=== PATIENT | male | born 1950 | race Caucasian/White ===

== ENCOUNTER 2021-03-08 10:23 | Inpatient (IN) ==
[2021-03-08 11:11] LABS: Basophils % 0.2 %; Eosinophils # 0.1 K/mcL (0.0-0.6); Eosinophils % 0.4 %; Hematocrit 44.8 % (37.5-50.1); Hemoglobin 15.1 g/dL (12.9-16.9); Immature Granulocytes % 0.3 % (0-4); Lymphocytes # 1.2 K/mcL (0.6-4.6); Lymphocytes % 9.6 %; Mean Corpuscular HGB Conc 33.7 g/dL (31.6-35.5); Mean Corpuscular Hemoglobin 29.5 pg (28.0-33.3); Mean Corpuscular Volume 87.5 fL (83.0-100.0); Mean Platelet Volume 11.1 fL (9.4-12.4); Monocytes # 0.7 K/mcL (0.0-1.3); Monocytes % 5.5 %; Neutrophils # 10.7 K/mcL (1.6-8.9); Platelet Count 168 K/mcL (140-400); Red Blood Count 5.12 M/mcL (4.19-5.50); Red Cell Distribution Width 14.2 % (11.5-14.5); White Blood Count 12.8 K/mcL (4.3-11.1)
[2021-03-08 11:28] LABS: INR 1.2; Prothrombin Time 13.6 Seconds (9.4-12.1)
[2021-03-08 11:30] LABS: Activated Partial Thrombo Time 33.9 Seconds (26.0-36.0)
[2021-03-08 11:40] LABS: BUN/Creatinine Ratio 22 (6-26); Blood Urea Nitrogen 20 mg/dL (8-23); Calcium 9.6 mg/dL (8.6-10.3); Carbon Dioxide 26 mEq/L (23-29); Chloride 98 mEq/L (98-107); Glucose 121 mg/dL (70-105); Osmolality,Calculated 290 (280-300); Potassium 3.4 mEq/L (3.5-5.1); Sodium 138 mEq/L (136-145); Troponin I < 0.03 ng/mL (< 0.04); eGFR For African Americans > 60 (> 60); eGFR For Non-African Americans > 60 (> 60)
[2021-03-08] MEDS ORDERED: Tdap (Boostrix) Vaccine 0.5 ML SYRINGE IM ONE (14:36)
[2021-03-08] MEDS ORDERED: MOM Conc 10 ML UD.LIQ PO PRN (15:12)
[2021-03-08] MEDS ORDERED: Naloxone 0.4 MG/ML INJ IVP PRN (15:12)
[2021-03-08] MEDS ORDERED: Perflutren Lipid Microsphere 1.3 ML in 0.9 % Sodium Chloride 8.7 ML IVP PRN (15:15)
[2021-03-08] MEDS: 0.9 % Sodium Chloride 1,000 ML IVC SCH (18:25)
[2021-03-08] MEDS: *HR* OxyCODONE Immed Rel 5 MG TABLET PO PRN (19:04)
[2021-03-08] MEDS: Amoxicillin 500 MG CAPSULE PO SCH (20:03)
[2021-03-09] MEDS: *HR* Enoxaparin 40 MG/0.4 ML SYRINGE SQ SCH (05:18)
[2021-03-09 07:47] LABS: Hematocrit 39.2 % (37.5-50.1); Hemoglobin 13.7 g/dL (12.9-16.9); Mean Corpuscular HGB Conc 34.9 g/dL (31.6-35.5); Mean Corpuscular Hemoglobin 30.2 pg (28.0-33.3); Mean Corpuscular Volume 86.5 fL (83.0-100.0); Platelet Count 147 K/mcL (140-400); Red Blood Count 4.53 M/mcL (4.19-5.50); Red Cell Distribution Width 14.4 % (11.5-14.5); White Blood Count 9.2 K/mcL (4.3-11.1)
[2021-03-09 08:04] LABS: Alanine Aminotransferase 16 Units/L (7-52); Albumin 3.8 g/dL (3.5-5.7); Albumin/Globulin Ratio 1.6 (1.1-2.2); Alkaline Phosphatase 15 Units/L (34-104); Aspartate Amino Transferase 19 Units/L (13-39); BUN/Creatinine Ratio 28 (6-26); Bilirubin,Total 1.4 mg/dL (0.3-1.0); Blood Urea Nitrogen 22 mg/dL (8-23); Calcium 9.1 mg/dL (8.6-10.3); Carbon Dioxide 24 mEq/L (23-29); Chloride 105 mEq/L (98-107); Globulin 2.4 g/dL (2.4-3.5); Glucose 92 mg/dL (70-105); Osmolality,Calculated 287 (280-300); Potassium 2.9 mEq/L (3.5-5.1); Sodium 137 mEq/L (136-145); Total Protein 6.2 g/dL (6.4-8.9); eGFR For African Americans > 60 (> 60); eGFR For Non-African Americans > 60 (> 60)
[2021-03-09] MEDS: Amoxicillin 500 MG CAPSULE PO SCH ×2 (08:53→20:03)
[2021-03-09] MEDS: *HR* OxyCODONE Immed Rel 5 MG TABLET PO PRN ×2 (08:58→20:06)
[2021-03-09 10:07] LABS: Estimated Average Glucose 105 mg/dl; Hemoglobin A1C 5.3 %
[2021-03-09] MEDS: 0.9 % Sodium Chloride 1,000 ML IVC SCH (14:11)
[2021-03-10] MEDS: *HR* Enoxaparin 40 MG/0.4 ML SYRINGE SQ SCH (04:59)
[2021-03-10] MEDS: Amoxicillin 500 MG CAPSULE PO SCH ×2 (08:06→19:38)
[2021-03-10] MEDS: *HR* OxyCODONE Immed Rel 5 MG TABLET PO PRN ×2 (12:18→23:50)
[2021-03-11 04:31] LABS: BUN/Creatinine Ratio 27 (6-26); Blood Urea Nitrogen 18 mg/dL (8-23); Calcium 8.9 mg/dL (8.6-10.3); Carbon Dioxide 14 mEq/L (23-29); Chloride 107 mEq/L (98-107); Glucose 64 mg/dL (70-105); Osmolality,Calculated 284 (280-300); Potassium 4.1 mEq/L (3.5-5.1); Sodium 137 mEq/L (136-145); eGFR For African Americans > 60 (> 60); eGFR For Non-African Americans > 60 (> 60)
[2021-03-11] MEDS: *HR* Enoxaparin 40 MG/0.4 ML SYRINGE SQ SCH (06:30)
[2021-03-11] MEDS: Amoxicillin 500 MG CAPSULE PO SCH ×2 (08:58→20:13)
[2021-03-11] MEDS ORDERED: E-Z-HD (BARIUM SULF) SUSPENSION PO ONE (16:23)
[2021-03-11] MEDS ORDERED: E-Z-PAQUE (BARIUM SULF) SUSP 1 BOTTLE PO ONE (16:23)
[2021-03-11] MEDS ORDERED: Isovue-370 500 ML BOTTLE IVP ONE (18:11)
[2021-03-11] MEDS: rOPINIRole 1 MG TABLET PO SCH (20:13)
[2021-03-12] MEDS: *HR* Enoxaparin 40 MG/0.4 ML SYRINGE SQ SCH (05:53)
[2021-03-12] MEDS: Amoxicillin 500 MG CAPSULE PO SCH ×2 (08:12→20:15)
[2021-03-12] MEDS: Ondansetron ODT 4 MG TAB.RAPDIS SL PRN (08:12)
[2021-03-12] MEDS: rOPINIRole 1 MG TABLET PO SCH (20:15)
[2021-03-13] MEDS: *HR* Enoxaparin 40 MG/0.4 ML SYRINGE SQ SCH (04:54)
[2021-03-13] MEDS: Amoxicillin 500 MG CAPSULE PO SCH (08:13)
[2021-03-13] MEDS ORDERED: *HR* Dextrose 50 % in Water (Syg) 50 ML SYRINGE IVP PRN (11:26)
[2021-03-13] MEDS ORDERED: D5% in Water 1,000 ML IVC PRN (11:26)
[2021-03-13] MEDS ORDERED: Dextrose Gel 15 GM/37.5 ML TUBE PO PRN ×2 (11:26)
[2021-03-13] MEDS: 0.9 % Sodium Chloride 1,000 ML IVC SCH ×2 (12:09→19:39)
[2021-03-13] MEDS ORDERED: Lidocaine -MPF 2% 5 ML VIAL ONE (14:08)
[2021-03-13] MEDS ORDERED: *HR* Propofol 200 MG/20 ML VIAL IVP ONE (14:08)
[2021-03-13] MEDS: rOPINIRole 1 MG TABLET PO SCH (19:37)
[2021-03-13] MEDS: *HR* OxyCODONE Immed Rel 5 MG TABLET PO PRN (19:37)
[2021-03-14] MEDS: *HR* Enoxaparin 40 MG/0.4 ML SYRINGE SQ SCH (05:31)
[2021-03-14] MEDS: 0.9 % Sodium Chloride 1,000 ML IVC SCH ×2 (13:12→13:13)
[2021-03-14 16:23] LABS: Influenza A PCR Negative (Negative); Influenza B PCR Negative (Negative); Resp. Syncytial Virus PCR Negative (Negative)
[2021-03-14 16:30] LABS: SARS-CoV-2 by PCR (In House) Negative (Negative)
[2021-03-14] MEDS: *HR* OxyCODONE Immed Rel 5 MG TABLET PO PRN (16:44)
[2021-03-14 18:14] LABS: Hematocrit 42.5 % (37.5-50.1); Hemoglobin 14.6 g/dL (12.9-16.9); Mean Corpuscular HGB Conc 34.4 g/dL (31.6-35.5); Mean Corpuscular Hemoglobin 30.4 pg (28.0-33.3); Mean Corpuscular Volume 88.5 fL (83.0-100.0); Mean Platelet Volume 11.7 fL (9.4-12.4); Platelet Count 150 K/mcL (140-400); Red Cell Distribution Width 14.6 % (11.5-14.5); White Blood Count 5.8 K/mcL (4.3-11.1)
[2021-03-14 18:32] LABS: BUN/Creatinine Ratio 35 (6-26); Blood Urea Nitrogen 23 mg/dL (8-23); Calcium 9.5 mg/dL (8.6-10.3); Carbon Dioxide 28 mEq/L (23-29); Chloride 103 mEq/L (98-107); Glucose 93 mg/dL (70-105); Osmolality,Calculated 297 (280-300); Potassium 3.5 mEq/L (3.5-5.1); Sodium 142 mEq/L (136-145); eGFR For African Americans > 60 (> 60); eGFR For Non-African Americans > 60 (> 60)
[2021-03-14] MEDS: rOPINIRole 1 MG TABLET PO SCH (19:47)
[2021-03-15] MEDS: *HR* OxyCODONE Immed Rel 5 MG TABLET PO PRN (01:27)
[2021-03-15 01:58] LABS: Basophils % 0.6 %; Eosinophils # 0.1 K/mcL (0.0-0.6); Eosinophils % 2.1 %; Hemoglobin 14.3 g/dL (12.9-16.9); Immature Granulocytes % 0.1 % (0-4); Lymphocytes # 1.9 K/mcL (0.6-4.6); Lymphocytes % 27.8 %; Mean Corpuscular HGB Conc 33.3 g/dL (31.6-35.5); Mean Corpuscular Hemoglobin 29.3 pg (28.0-33.3); Mean Corpuscular Volume 88.1 fL (83.0-100.0); Monocytes # 0.6 K/mcL (0.0-1.3); Monocytes % 8.6 %; Neutrophils # 4.1 K/mcL (1.6-8.9); Platelet Count 150 K/mcL (140-400); Red Blood Count 4.88 M/mcL (4.19-5.50); Red Cell Distribution Width 14.6 % (11.5-14.5); Segmented Neutrophils % 60.8 %; White Blood Count 6.8 K/mcL (4.3-11.1)
[2021-03-15] MEDS: Ondansetron ODT 4 MG TAB.RAPDIS SL PRN (02:14)
[2021-03-15 02:16] LABS: Alanine Aminotransferase 31 Units/L (7-52); Albumin 3.8 g/dL (3.5-5.7); Albumin/Globulin Ratio 1.4 (1.1-2.2); Alkaline Phosphatase 22 Units/L (34-104); Aspartate Amino Transferase 35 Units/L (13-39); BUN/Creatinine Ratio 32 (6-26); Bilirubin,Total 1.2 mg/dL (0.3-1.0); Blood Urea Nitrogen 22 mg/dL (8-23); Calcium 9.3 mg/dL (8.6-10.3); Carbon Dioxide 28 mEq/L (23-29); Chloride 105 mEq/L (98-107); Globulin 2.8 g/dL (2.4-3.5); Glucose 101 mg/dL (70-105); Osmolality,Calculated 289 (280-300); Potassium 3.2 mEq/L (3.5-5.1); Sodium 138 mEq/L (136-145); Total Protein 6.6 g/dL (6.4-8.9); eGFR For African Americans > 60 (> 60); eGFR For Non-African Americans > 60 (> 60)
[2021-03-15] MEDS: 0.9 % Sodium Chloride 1,000 ML IVC SCH ×2 (04:50→09:40)
[2021-03-15] MEDS: *HR* Enoxaparin 40 MG/0.4 ML SYRINGE SQ SCH (05:00)
[2021-03-15] MEDS ORDERED: Prochlorperazine 10 MG/2 ML VIAL IVP PRN (05:16)
[2021-03-15 07:20] VITALS: TEMP 97.5
[2021-03-15 10:50] VITALS: BP 134/78; PULSE 80; O2SAT 93
== END 2021-03-15 16:09 | DRG 312 ==
LOC: 3BNU 10:23 → EMEROOARM 10:23 → SUATTDRO 15:13 → 3BNU 17:10
PROVIDERS: ADMIT Internal Medicine; ATTEND Registered Nurse
PROC: ENDOEDS (2021-03-13 15:25)

== ENCOUNTER 2021-06-19 12:21 | Inpatient (IN) ==
[2021-06-19] MEDS ORDERED: 0.9 % Sodium Chloride 1,000 ML IVC ONE (14:21)
[2021-06-19 15:13] LABS: Basophils # 0.1 K/mcL (0.0-0.2); Basophils % 0.6 %; Eosinophils # 0.2 K/mcL (0.0-0.6); Eosinophils % 1.7 %; Hematocrit 37.1 % (37.5-50.1); Hemoglobin 11.6 g/dL (12.9-16.9); Immature Granulocytes % 0.6 % (0-4); Lymphocytes # 1.6 K/mcL (0.6-4.6); Lymphocytes % 15.5 %; Mean Corpuscular HGB Conc 31.3 g/dL (31.6-35.5); Mean Corpuscular Hemoglobin 28.9 pg (28.0-33.3); Mean Corpuscular Volume 92.5 fL (83.0-100.0); Mean Platelet Volume 9.5 fL (9.4-12.4); Monocytes # 0.6 K/mcL (0.0-1.3); Monocytes % 5.7 %; Neutrophils # 7.7 K/mcL (1.6-8.9); Platelet Count 316 K/mcL (140-400); Red Blood Count 4.01 M/mcL (4.19-5.50); Red Cell Distribution Width 15.3 % (11.5-14.5); Segmented Neutrophils % 75.9 %; White Blood Count 10.1 K/mcL (4.3-11.1)
[2021-06-19 15:16] LABS: Alanine Aminotransferase 16 Units/L (7-52); Albumin 3.7 g/dL (3.5-5.7); Albumin/Globulin Ratio 1.1 (1.1-2.2); Alkaline Phosphatase 30 Units/L (34-104); Aspartate Amino Transferase 14 Units/L (13-39); BUN/Creatinine Ratio 14 (6-26); Bilirubin,Direct 0.1 mg/dL (0.0-0.2); Bilirubin,Indirect 0.3 mg/dL (0.0-1.0); Bilirubin,Total 0.4 mg/dL (0.3-1.0); Blood Urea Nitrogen 44 mg/dL (8-23); Calcium 9.6 mg/dL (8.6-10.3); Carbon Dioxide 21 mEq/L (23-29); Chloride 105 mEq/L (98-107); Globulin 3.3 g/dL (2.4-3.5); Glucose 93 mg/dL (70-105); Lipase 27 Units/L (11-82); Osmolality,Calculated 289 (280-300); Potassium 4.4 mEq/L (3.5-5.1); Sodium 134 mEq/L (136-145); eGFR For African Americans 23 (> 60); eGFR For Non-African Americans 19 (> 60)
[2021-06-19 15:25] LABS: Troponin I < 0.03 ng/mL (< 0.04)
[2021-06-19] MEDS ORDERED: Pantoprazole 40 MG VIAL IVP ONE (17:19)
[2021-06-19] MEDS ORDERED: Naloxone 0.4 MG/ML INJ IVP PRN (17:39)
[2021-06-19 20:24] LABS: Creatine Kinase 15 Units/L (30-223); Magnesium 2.4 mg/dL (1.6-2.6); Phosphorous 4.6 mg/dL (2.7-4.5)
[2021-06-19] MEDS: *HR* Heparin 5,000 UNIT/ML VIAL SQ SCH (21:52)
[2021-06-19] MEDS: Acetaminophen 325 MG TABLET PO PRN (21:52)
[2021-06-20 03:06] LABS: Basophils # 0.1 K/mcL (0.0-0.2); Basophils % 0.6 %; Eosinophils # 0.3 K/mcL (0.0-0.6); Hematocrit 35.5 % (37.5-50.1); Hemoglobin 11.2 g/dL (12.9-16.9); Immature Granulocytes % 0.5 % (0-4); Lymphocytes # 2.7 K/mcL (0.6-4.6); Lymphocytes % 23.5 %; Mean Corpuscular HGB Conc 31.5 g/dL (31.6-35.5); Mean Corpuscular Hemoglobin 28.8 pg (28.0-33.3); Mean Corpuscular Volume 91.3 fL (83.0-100.0); Mean Platelet Volume 9.8 fL (9.4-12.4); Monocytes # 0.9 K/mcL (0.0-1.3); Monocytes % 7.9 %; Neutrophils # 7.3 K/mcL (1.6-8.9); Platelet Count 262 K/mcL (140-400); Red Blood Count 3.89 M/mcL (4.19-5.50); Red Cell Distribution Width 15.4 % (11.5-14.5); Segmented Neutrophils % 64.5 %; White Blood Count 11.4 K/mcL (4.3-11.1)
[2021-06-20 03:34] LABS: Calcium 9.1 mg/dL (8.6-10.3); Potassium 4.2 mEq/L (3.5-5.1)
[2021-06-20] MEDS: *HR* Heparin 5,000 UNIT/ML VIAL SQ SCH (05:59)
[2021-06-20] MEDS: Pantoprazole 40 MG VIAL IVP SCH (07:38)
[2021-06-20] MEDS: Acetaminophen 325 MG TABLET PO PRN (09:38)
[2021-06-20] MEDS: Ringers Solution, Lactated 1,000 ML IVC SCH (09:39)
[2021-06-20 12:51] LABS: % Iron Saturation 15 % (20-55); Iron 38 mcg/dL (65-175); Transferrin 176 mg/dL (203-362)
[2021-06-20 13:09] LABS: Ferritin 293 ng/mL (20-250)
[2021-06-20] MEDS ORDERED: Simethicone 40 MG/0.6 ML MLS IR ONE (13:45)
[2021-06-20] MEDS ORDERED: Lidocaine -MPF 2% 5 ML VIAL ONE (14:25)
[2021-06-20] MEDS ORDERED: *HR* Propofol 200 MG/20 ML VIAL IVP ONE (15:00)
[2021-06-20 18:53] LABS: Bacteria,Urine Few per hpf (None-Few); Bilirubin,Urine Negative (Negative); Blood,Urine Trace (Negative); Clarity,Urine Turbid (Clear); Color,Urine Light-Yellow (Yellow); Glucose,Urine (UA) Normal (Normal); Ketones,Urine Negative (Negative); Leukocyte Esterase,Urine Large (Negative); Mucus,Urine Few per lpf (None-Few); Nitrite,Urine Negative (Negative); PH,Urine 6.5 pH Units (5.0-8.0); Protein,Urine Trace mg/dL (Neg-Trace); RBC,Urine 0-3 per hpf (0-3); Specific Gravity,Urine 1.008 (1.010-1.025); Squamous Epithelial Cell,Urine Few per hpf (None-Few); Urobilinogen,Urine Normal (Normal); WBC,Urine TNTC per hpf (0-3)
[2021-06-20 19:11] LABS: Sodium, Urine 58.6 mEq/L
[2021-06-20] MEDS: rOPINIRole 1 MG TABLET PO SCH (21:12)
[2021-06-21 03:15] LABS: Basophils # 0.1 K/mcL (0.0-0.2); Basophils % 0.8 %; Eosinophils # 0.3 K/mcL (0.0-0.6); Eosinophils % 3.4 %; Immature Granulocytes % 0.4 % (0-4); Lymphocytes # 1.9 K/mcL (0.6-4.6); Lymphocytes % 23.5 %; Mean Corpuscular HGB Conc 31.3 g/dL (31.6-35.5); Mean Corpuscular Hemoglobin 29.9 pg (28.0-33.3); Mean Corpuscular Volume 95.5 fL (83.0-100.0); Mean Platelet Volume 10.9 fL (9.4-12.4); Monocytes # 0.6 K/mcL (0.0-1.3); Monocytes % 7.5 %; Neutrophils # 5.1 K/mcL (1.6-8.9); Red Blood Count 3.35 M/mcL (4.19-5.50); Red Cell Distribution Width 15.4 % (11.5-14.5); Segmented Neutrophils % 64.4 %; White Blood Count 7.9 K/mcL (4.3-11.1)
[2021-06-21 03:32] LABS: Calcium 8.9 mg/dL (8.6-10.3); Magnesium 2.2 mg/dL (1.6-2.6); Potassium 4.9 mEq/L (3.5-5.1)
[2021-06-21 03:49] LABS: Platelet Count 90 K/mcL (140-400)
[2021-06-21] MEDS: Ringers Solution, Lactated 1,000 ML IVC SCH ×2 (06:39→16:16)
[2021-06-21] MEDS: Pantoprazole 40 MG VIAL IVP SCH (08:03)
[2021-06-21] MEDS: Acetaminophen 325 MG TABLET PO PRN (16:22)
[2021-06-21] MEDS: rOPINIRole 1 MG TABLET PO SCH (20:58)
[2021-06-22] MEDS: Ringers Solution, Lactated 1,000 ML IVC SCH ×2 (01:00→14:30)
[2021-06-22 07:22] LABS: Basophils # 0.1 K/mcL (0.0-0.2); Basophils % 0.8 %; Eosinophils # 0.3 K/mcL (0.0-0.6); Eosinophils % 2.9 %; Immature Granulocytes % 0.4 % (0-4); Lymphocytes # 2.7 K/mcL (0.6-4.6); Lymphocytes % 27.8 %; Mean Corpuscular HGB Conc 31.4 g/dL (31.6-35.5); Mean Corpuscular Hemoglobin 28.9 pg (28.0-33.3); Mean Platelet Volume 9.5 fL (9.4-12.4); Monocytes # 0.6 K/mcL (0.0-1.3); Monocytes % 6.6 %; Neutrophils # 5.9 K/mcL (1.6-8.9); Platelet Count 312 K/mcL (140-400); Red Blood Count 4.02 M/mcL (4.19-5.50); Red Cell Distribution Width 15.5 % (11.5-14.5); Segmented Neutrophils % 61.5 %; White Blood Count 9.5 K/mcL (4.3-11.1)
[2021-06-22 07:25] LABS: Hemoglobin 11.6 g/dL (12.9-16.9)
[2021-06-22] MEDS ORDERED: Ondansetron 4 MG/2 ML VIAL ONE (07:32)
[2021-06-22] MEDS ORDERED: Lidocaine -MPF 2% 2 ML VIAL ONE (07:32)
[2021-06-22 07:43] LABS: Calcium 9.8 mg/dL (8.6-10.3); Potassium 4.1 mEq/L (3.5-5.1)
[2021-06-22] MEDS ORDERED: *HR* FentaNYL (PF) 100 MCG/2 ML VIAL ONE (10:03)
[2021-06-22] MEDS ORDERED: Lidocaine -MPF 1% 5 ML AMPUL ONE (10:11)
[2021-06-22] MEDS ORDERED: *HR* OxyCODONE Oral Soln 5 MG/5 ML UD.LIQ GTUBE PRN (10:42)
[2021-06-22] MEDS: Pantoprazole 40 MG VIAL IVP SCH (10:55)
[2021-06-22 11:52] LABS: Phosphorous 4.8 mg/dL (2.7-4.5)
[2021-06-22] MEDS: Acetaminophen 325 MG TABLET PO PRN (16:21)
[2021-06-22] MEDS: *HR* OxyCODONE Oral Soln 5 MG/5 ML UD.LIQ PO PRN ×2 (17:49→23:32)
[2021-06-22] MEDS: rOPINIRole 1 MG TABLET PO SCH (22:10)
[2021-06-22] MEDS: Mirtazapine 15 MG TABLET PO SCH (22:10)
[2021-06-23 03:16] LABS: Basophils % 0.3 %; Eosinophils % 0.1 %; Hematocrit 33.4 % (37.5-50.1); Hemoglobin 10.6 g/dL (12.9-16.9); Immature Granulocytes % 0.5 % (0-4); Lymphocytes # 1.8 K/mcL (0.6-4.6); Lymphocytes % 14.9 %; Mean Corpuscular HGB Conc 31.7 g/dL (31.6-35.5); Mean Corpuscular Hemoglobin 29.1 pg (28.0-33.3); Mean Corpuscular Volume 91.8 fL (83.0-100.0); Mean Platelet Volume 9.8 fL (9.4-12.4); Monocytes # 0.7 K/mcL (0.0-1.3); Monocytes % 6.1 %; Neutrophils # 9.3 K/mcL (1.6-8.9); Platelet Count 269 K/mcL (140-400); Red Blood Count 3.64 M/mcL (4.19-5.50); Red Cell Distribution Width 15.3 % (11.5-14.5); Segmented Neutrophils % 78.1 %; White Blood Count 11.9 K/mcL (4.3-11.1)
[2021-06-23 03:36] LABS: Calcium 9.3 mg/dL (8.6-10.3); Potassium 4.4 mEq/L (3.5-5.1)
[2021-06-23] MEDS: Ringers Solution, Lactated 1,000 ML IVC SCH ×2 (04:23→17:32)
[2021-06-23] MEDS: Pantoprazole 40 MG VIAL IVP SCH (09:58)
[2021-06-23] MEDS: *HR* OxyCODONE Oral Soln 5 MG/5 ML UD.LIQ PO PRN ×2 (09:59→18:24)
[2021-06-23] MEDS ORDERED: Iron Sucrose Complex 400 MG in 0.9 % Sodium Chloride 250 ML IVPB ONE (11:04)
[2021-06-23] MEDS: Mirtazapine 15 MG TABLET PO SCH (20:53)
[2021-06-23] MEDS: rOPINIRole 1 MG TABLET PO SCH (20:53)
[2021-06-24] MEDS ORDERED: Prochlorperazine 10 MG/2 ML VIAL IVP PRN (01:16)
[2021-06-24 01:58] LABS: Basophils % 0.4 %; Eosinophils # 0.3 K/mcL (0.0-0.6); Hematocrit 39.9 % (37.5-50.1); Hemoglobin 12.1 g/dL (12.9-16.9); Immature Granulocytes % 0.3 % (0-4); Lymphocytes # 2.1 K/mcL (0.6-4.6); Lymphocytes % 23.1 %; Mean Corpuscular HGB Conc 30.3 g/dL (31.6-35.5); Mean Corpuscular Hemoglobin 28.7 pg (28.0-33.3); Mean Corpuscular Volume 94.8 fL (83.0-100.0); Mean Platelet Volume 9.6 fL (9.4-12.4); Monocytes # 0.7 K/mcL (0.0-1.3); Monocytes % 8.3 %; Neutrophils # 5.8 K/mcL (1.6-8.9); Platelet Count 200 K/mcL (140-400); Red Blood Count 4.21 M/mcL (4.19-5.50); Red Cell Distribution Width 15.8 % (11.5-14.5); Segmented Neutrophils % 64.9 %; White Blood Count 8.9 K/mcL (4.3-11.1)
[2021-06-24 02:32] LABS: Calcium 9.2 mg/dL (8.6-10.3); Potassium 4.2 mEq/L (3.5-5.1)
[2021-06-24] MEDS: Ringers Solution, Lactated 1,000 ML IVC SCH (05:30)
[2021-06-24] MEDS: Pantoprazole 40 MG VIAL IVP SCH (11:22)
[2021-06-24] MEDS: *HR* OxyCODONE Oral Soln 5 MG/5 ML UD.LIQ GTUBE PRN (15:55)
[2021-06-24] MEDS: rOPINIRole 1 MG TABLET GTUBE SCH (20:42)
[2021-06-24] MEDS: Mirtazapine 15 MG TABLET GTUBE SCH (20:43)
[2021-06-25] MEDS: Ringers Solution, Lactated 1,000 ML IVC SCH ×2 (01:22→12:54)
[2021-06-25] MEDS: *HR* OxyCODONE Oral Soln 5 MG/5 ML UD.LIQ GTUBE PRN ×3 (05:42→22:35)
[2021-06-25 06:12] LABS: Basophils # 0.1 K/mcL (0.0-0.2); Basophils % 1.1 %; Eosinophils # 0.5 K/mcL (0.0-0.6); Eosinophils % 7.2 %; Hematocrit 32.4 % (37.5-50.1); Immature Granulocytes % 0.4 % (0-4); Lymphocytes # 2.5 K/mcL (0.6-4.6); Lymphocytes % 32.8 %; Mean Corpuscular HGB Conc 31.5 g/dL (31.6-35.5); Mean Corpuscular Hemoglobin 29.5 pg (28.0-33.3); Mean Corpuscular Volume 93.6 fL (83.0-100.0); Mean Platelet Volume 10.2 fL (9.4-12.4); Monocytes # 0.7 K/mcL (0.0-1.3); Monocytes % 8.8 %; Neutrophils # 3.7 K/mcL (1.6-8.9); Platelet Count 184 K/mcL (140-400); Red Blood Count 3.46 M/mcL (4.19-5.50); Red Cell Distribution Width 15.8 % (11.5-14.5); Segmented Neutrophils % 49.7 %; White Blood Count 7.5 K/mcL (4.3-11.1)
[2021-06-25 06:16] LABS: Hemoglobin 10.2 g/dL (12.9-16.9)
[2021-06-25 06:34] LABS: Calcium 9.1 mg/dL (8.6-10.3); Potassium 3.7 mEq/L (3.5-5.1)
[2021-06-25 16:59] LABS: Complement C3 113 mg/dL (87-200)
[2021-06-25] MEDS ORDERED: E-Z-HD (BARIUM SULF) SUSPENSION PO ONE (19:31)
[2021-06-25] MEDS ORDERED: E-Z-PAQUE (BARIUM SULF) SUSP 1 BOTTLE PO ONE (19:31)
[2021-06-25] MEDS: rOPINIRole 1 MG TABLET GTUBE SCH (22:35)
[2021-06-25] MEDS: Mirtazapine 15 MG TABLET GTUBE SCH (22:35)
[2021-06-26] MEDS: Ringers Solution, Lactated 1,000 ML IVC SCH ×2 (03:56→16:48)
[2021-06-26 07:30] LABS: Basophils % 0.6 %; Eosinophils # 0.5 K/mcL (0.0-0.6); Eosinophils % 7.2 %; Hematocrit 32.4 % (37.5-50.1); Hemoglobin 10.3 g/dL (12.9-16.9); Immature Granulocytes % 0.4 % (0-4); Lymphocytes % 28.4 %; Mean Corpuscular HGB Conc 31.8 g/dL (31.6-35.5); Mean Corpuscular Hemoglobin 29.7 pg (28.0-33.3); Mean Corpuscular Volume 93.4 fL (83.0-100.0); Mean Platelet Volume 11.6 fL (9.4-12.4); Monocytes # 0.6 K/mcL (0.0-1.3); Monocytes % 7.9 %; Neutrophils # 3.9 K/mcL (1.6-8.9); Platelet Count 162 K/mcL (140-400); Red Blood Count 3.47 M/mcL (4.19-5.50); Red Cell Distribution Width 15.9 % (11.5-14.5); Segmented Neutrophils % 55.5 %; White Blood Count 6.9 K/mcL (4.3-11.1)
[2021-06-26 07:36] LABS: Calcium 8.9 mg/dL (8.6-10.3); Potassium 4.2 mEq/L (3.5-5.1)
[2021-06-26] MEDS ORDERED: Bisacodyl 10 MG RECTAL SUPPOSITORY RC PRN (13:55)
[2021-06-26] MEDS: Sennosides/Docusate Sodium TABLET GTUBE SCH ×2 (14:07→21:14)
[2021-06-26] MEDS: *HR* OxyCODONE Oral Soln 5 MG/5 ML UD.LIQ GTUBE PRN (16:48)
[2021-06-26] MEDS: rOPINIRole 1 MG TABLET GTUBE SCH (21:13)
[2021-06-26] MEDS: Mirtazapine 15 MG TABLET GTUBE SCH (21:13)
[2021-06-27 05:23] LABS: Basophils # 0.1 K/mcL (0.0-0.2); Basophils % 0.8 %; Calcium 8.8 mg/dL (8.6-10.3); Eosinophils # 0.6 K/mcL (0.0-0.6); Eosinophils % 7.3 %; Hematocrit 33.1 % (37.5-50.1); Hemoglobin 10.5 g/dL (12.9-16.9); Immature Granulocytes % 0.6 % (0-4); Lymphocytes # 1.8 K/mcL (0.6-4.6); Lymphocytes % 21.9 %; Magnesium 1.7 mg/dL (1.6-2.6); Mean Corpuscular HGB Conc 31.7 g/dL (31.6-35.5); Mean Corpuscular Hemoglobin 29.5 pg (28.0-33.3); Monocytes # 0.6 K/mcL (0.0-1.3); Monocytes % 7.4 %; Neutrophils # 5.2 K/mcL (1.6-8.9); Phosphorous 2.9 mg/dL (2.7-4.5); Platelet Count 182 K/mcL (140-400); Potassium 3.8 mEq/L (3.5-5.1); Red Blood Count 3.56 M/mcL (4.19-5.50); Red Cell Distribution Width 15.9 % (11.5-14.5); White Blood Count 8.4 K/mcL (4.3-11.1)
[2021-06-27] MEDS: Ringers Solution, Lactated 1,000 ML IVC SCH (06:46)
[2021-06-27] MEDS: *HR* OxyCODONE Oral Soln 5 MG/5 ML UD.LIQ GTUBE PRN ×2 (06:54→17:22)
[2021-06-27] MEDS: Metoclopramide 10 MG/2 ML VIAL IVP SCH ×4 (08:16→23:58)
[2021-06-27] MEDS: Sennosides/Docusate Sodium TABLET GTUBE SCH ×2 (08:16→21:10)
[2021-06-27] MEDS ORDERED: Milk and Molasses Enema 200 ML RC ONE (11:00)
[2021-06-27] MEDS ORDERED: *HR* OxyCODONE Oral Soln 5 MG/5 ML UD.LIQ GTUBE ONE (11:00)
[2021-06-27 15:04] LABS: ANA IgG by ELISA NONE DETECTED (None Detected)
[2021-06-27] MEDS: rOPINIRole 1 MG TABLET GTUBE SCH (21:10)
[2021-06-27] MEDS: Mirtazapine 15 MG TABLET GTUBE SCH (21:10)
[2021-06-27] MEDS: Ondansetron ODT 4 MG TAB.RAPDIS SL PRN (21:25)
[2021-06-28 01:46] LABS: Basophils # 0.1 K/mcL (0.0-0.2); Basophils % 0.7 %; Eosinophils # 0.7 K/mcL (0.0-0.6); Eosinophils % 5.8 %; Hematocrit 34.9 % (37.5-50.1); Immature Granulocytes % 0.4 % (0-4); Lymphocytes # 3.3 K/mcL (0.6-4.6); Lymphocytes % 29.5 %; Mean Corpuscular HGB Conc 31.5 g/dL (31.6-35.5); Mean Corpuscular Hemoglobin 29.6 pg (28.0-33.3); Mean Corpuscular Volume 93.8 fL (83.0-100.0); Mean Platelet Volume 11.1 fL (9.4-12.4); Monocytes % 8.6 %; Neutrophils # 6.2 K/mcL (1.6-8.9); Platelet Count 237 K/mcL (140-400); Red Blood Count 3.72 M/mcL (4.19-5.50); Red Cell Distribution Width 15.8 % (11.5-14.5); White Blood Count 11.3 K/mcL (4.3-11.1)
[2021-06-28 01:52] LABS: Calcium 8.9 mg/dL (8.6-10.3); Potassium 3.8 mEq/L (3.5-5.1)
[2021-06-28] MEDS: Metoclopramide 10 MG/2 ML VIAL IVP SCH ×3 (06:29→17:59)
[2021-06-28] MEDS: Sennosides/Docusate Sodium TABLET GTUBE SCH ×2 (08:02→22:39)
[2021-06-28] MEDS: *HR* OxyCODONE Oral Soln 5 MG/5 ML UD.LIQ GTUBE PRN (08:28)
[2021-06-28] MEDS: Ondansetron ODT 4 MG TAB.RAPDIS SL PRN (19:40)
[2021-06-28] MEDS: Mirtazapine 15 MG TABLET GTUBE SCH (22:39)
[2021-06-28] MEDS: rOPINIRole 1 MG TABLET GTUBE SCH (22:39)
[2021-06-29] MEDS: Metoclopramide 10 MG/2 ML VIAL IVP SCH ×2 (00:17→05:36)
[2021-06-29 04:13] LABS: Basophils % 0.4 %; Eosinophils # 0.5 K/mcL (0.0-0.6); Eosinophils % 5.2 %; Hemoglobin 10.1 g/dL (12.9-16.9); Immature Granulocytes % 0.5 % (0-4); Lymphocytes # 2.1 K/mcL (0.6-4.6); Lymphocytes % 22.3 %; Mean Corpuscular HGB Conc 31.6 g/dL (31.6-35.5); Mean Corpuscular Hemoglobin 29.2 pg (28.0-33.3); Mean Corpuscular Volume 92.5 fL (83.0-100.0); Mean Platelet Volume 11.3 fL (9.4-12.4); Monocytes % 10.8 %; Neutrophils # 5.7 K/mcL (1.6-8.9); Platelet Count 192 K/mcL (140-400); Red Blood Count 3.46 M/mcL (4.19-5.50); Red Cell Distribution Width 15.7 % (11.5-14.5); Segmented Neutrophils % 60.8 %; White Blood Count 9.3 K/mcL (4.3-11.1)
[2021-06-29 04:26] LABS: Calcium 8.6 mg/dL (8.6-10.3)
[2021-06-29] MEDS: Sennosides/Docusate Sodium TABLET GTUBE SCH ×2 (07:47→20:44)
[2021-06-29] MEDS: Mirtazapine 15 MG TABLET GTUBE SCH (20:44)
[2021-06-29] MEDS: rOPINIRole 1 MG TABLET GTUBE SCH (20:45)
[2021-06-30] MEDS: Sennosides/Docusate Sodium TABLET GTUBE SCH ×2 (07:39→22:33)
[2021-06-30] MEDS ORDERED: Melatonin 3 MG TABLET PO PRN (09:33)
[2021-06-30] MEDS: rOPINIRole 1 MG TABLET GTUBE SCH (22:32)
[2021-06-30] MEDS: Mirtazapine 15 MG TABLET GTUBE SCH (22:32)
[2021-07-01] MEDS: Sennosides/Docusate Sodium TABLET GTUBE SCH (08:19)
[2021-07-01] MEDS ORDERED: Melatonin 3 MG TABLET GTUBE PRN (09:30)
[2021-07-01 11:58] VITALS: BP 118/67; PULSE 88; TEMP 98.1; O2SAT 98
[2021-07-01] MEDS ORDERED: Metoclopramide 10 MG/2 ML VIAL IVP ONE (13:17)
[2021-07-01] MEDS: *HR* OxyCODONE Oral Soln 5 MG/5 ML UD.LIQ GTUBE PRN (14:07)
== END 2021-07-01 15:26 | disposition home health service (06) | DRG 392 ==
LOC: 2ANU 12:21 → EMEROOARM 12:21 → 2ANU 18:19 → SUATTDRO 06-20 07:13
PROVIDERS: ADMIT Internal Medicine; ATTEND Internal Medicine